=== PATIENT | female | born 1985 | race Caucasian/White ===

== ENCOUNTER 2018-03-27 21:04 | Emergency (ER) | payer OTHER ==
[~2018-03-27] VITALS: Ht 157.5 cm; Wt 55.3 kg
[2018-03-27 21:07] VITALS: Ht 157.5 cm; Wt 55.3 kg
[2018-03-28 00:17] VITALS: BP 148/91
== END 2018-03-28 00:17 | disposition home or self-care (01) ==
LOC: ED 21:04
DX: B34.9 Viral infection, unspecified (principal)